=== PATIENT | female | born 1960 | race Caucasian/White ===

== ENCOUNTER 2017-01-05 13:12 | Emergency (ER) | payer OTHER ==
[~2017-01-05] VITALS: Ht 165.1 cm; Wt 87.5 kg
--- NOTE | ~2017-01-05 | EKG ---
[address] [address] ELECTROCARDIOGRAM REPORT Name: RAUL SANDERS [facility] [id number] Admission: 01/05/17 Attend Phys: Discharge: 01/05/17 Date of : 56 Report #: [id number] THIS REPORT FOR: //name// [facility] ED Test Date: 2017-01-05 Test Time: 14:28:36 Pat Name: RAUL SANDERS Department: Room: Gender: F [employer] In[employer]: MOI : 1960 Requested By: Devante Montes Order Number: [id number] MD: Humphrey Yoon Measurements Intervals [place] Rate: 56 P: 22 RI: 161 QRS: -37 QRSD: 104 T: 11 QT: 446 QTc: 431 Interpretive Statements Sinus rhythm Left axis deviation No previous ECG available for comparison Electronically Signed On 01-05-2017 17:05:22 CDT by Humphrey Yoon [email or web address] <ELECTRONICALLY SIGNED> By: Humphrey Yoon MD 01/05/17 1705 1428 1428 Humphrey Yoon MD /MAX
[~2017-01-05 13:12] MED LIST: AMOXICILLIN875 MG PO; EFFEXOR; NORCO 5-325 TA1 EACH PO
[2017-01-05 14:31] LABS: ABSOLUTE NEUTROPHILS 3.5 thou/uL (1.4-8.2); BASOPHILS 0.7 % (0.0-2.0); EOSINOPHILS 1.8 % (0.0-3.0); HEMATOCRIT 41.8 % (37.0-47.0); HEMOGLOBIN 14.3 gm/dL (12.0-15.0); MCHC 34.2 g/dL (28.0-37.0); MCV 90.6 fL (80.0-100.0); MONOCYTES 8.5 % (1.0-8.0); PLATELET COUNT 250 thou/uL (150-400); RBC 4.62 mil/uL (4.20-5.00); WBC 6.3 thou/uL (4.0-11.0)
[2017-01-05 14:32] LABS: MANUAL DIFF NO
[2017-01-05 14:40] LABS: ANION GAP 4 mmol/L (7-16); BUN 11 mg/dL (7-18); CALCIUM 8.8 mg/dL (8.5-10.1); CHLORIDE 105 mmol/L (98-107); CO2 30 mmol/L (21-32); CREATININE 0.7 mg/dL (0.6-1.0); GLUCOSE 87 mg/dL (74-106); POTASSIUM 4.1 mmol/L (3.5-5.1); SODIUM 139 mmol/L (136-145)
[2017-01-05] MEDS ORDERED: HORMONE PILL (14:40)
[2017-01-05 14:48] LABS: ALBUMIN 3.7 g/dL (3.4-5.0); ALKALINE PHOSPHATASE 119 U/L (46-116); SGOT 17 U/L (15-37); SGPT 19 U/L (30-65); TOTAL BILIRUBIN 0.3 mg/dL (<0.1-1.0); TOTAL PROTEIN 7.4 g/dL (6.4-8.2); TROPONIN-I < 0.04 ng/mL (<0.04-0.07)
[2017-01-05 16:25] VITALS: BP 143/71
== END 2017-01-05 16:34 | disposition home or self-care (01) ==
LOC: ER 13:12
PROVIDERS: Physician Assistant
DX: I10 Essential (primary) hypertension (principal); R20.0 Anesthesia of skin; Z88.5 Allergy status to narcotic agent; Z88.2 Allergy status to sulfonamides